=== PATIENT | male | born 1990 | race African-American/Black ===

== ENCOUNTER 2017-02-06 12:03 | Emergency (ER) | payer BC ==
[~2017-02-06] VITALS: Ht 177.8 cm; Wt 83.0 kg
[~2017-02-06 12:03] MED LIST: ATIVAN0.5 MG PO
[2017-02-06] MEDS ORDERED: ZOFRAN ODT4 MG PO (13:27)
[2017-02-06 13:40] VITALS: BP 133/77
== END 2017-02-06 13:44 | disposition home or self-care (01) | DRG 951 ==
LOC: ED 12:03
DX: Z77.098 Contact with and (suspected) exposure to other hazardous, chiefly nonmedicinal, chemicals (principal); H57.13 Ocular pain, bilateral; H92.03 Otalgia, bilateral; R10.30 Lower abdominal pain, unspecified; R11.0 Nausea; X58.XXXA Exposure to other specified factors, initial encounter; Y93.89 Activity, other specified; Y92.89 Other specified places as the place of occurrence of the external cause

== ENCOUNTER 2017-02-19 16:46 | Emergency (ER) | payer BC ==
[~2017-02-19] VITALS: Ht 177.8 cm; Wt 85.0 kg
[~2017-02-19 16:46] MED LIST changes: +ZOFRAN ODT4 MG PO
[2017-02-19 17:11] VITALS: BP 116/67
== END 2017-02-19 17:19 | disposition home or self-care (01) | DRG 156 ==
LOC: ED 16:46
DX: H61.21 Impacted cerumen, right ear (principal); F17.210 Nicotine dependence, cigarettes, uncomplicated; F41.9 Anxiety disorder, unspecified